=== PATIENT | female | born 1970 | race Caucasian/White ===

== ENCOUNTER 2024-09-19 14:56 | Observation (INO) | payer OTHER, SELFPAY ==
[2024-09-19] VITALS (9 sets, daily range): BP systolic 132–210; BP diastolic 88–128; PULSE 96–101; BMI 22.5; BMI 23.3
--- NOTE | 2024-09-19 11:55 | ED.GENMED ---
History of Present Illness
General
Chief Complaint: Fainting Sensation
Source: patient
Exam Limitations: none
Time Seen by Provider: 09/19/24 11:41
Nursing documentation reviewed up to this point in time: agreed with
History of Present Illness
History of Present Illness:
see mdm
Past History
Past History
ED Past Medical History: GERD and HTN
ED Past Surgical History: Appendectomy
Social History
Tobacco: Non-smoker
Alcohol: Occasional
Personal:
Living: with family
Employment: Employed
Family History
Family History: Negative Early CAD
Review of Systems
Review of Systems
Allergies reviewed?: Yes
All Other Systems: Not applicable
Phy Exam
Physical Exam
Physical Exam:
GENERAL: Alert , in no apparent distress
HEAD: NCAT
EYE: pupils asymmetric and reactive, no nystagmus, no photophobia
NECK: Supple,full rom, nontender
ENT: o/p clr, mmm.
CARDIAC: Regular rate and rhythm . no edema
LUNGS: Clear breath sounds bilaterally, no acute respiratory distress, no wheezes/rales/rhonchi
ABDOMEN: Soft, without focal tenderness, no r/g, no cvat
NEUROLOGICAL: Alert and orientedx 4, cn intact, no facial asymmetry, SPEECH DELAY 5/5 strength in UE/LE, sensation intact, romberg neg, ambulates without assistance, neg pronator drift
SKIN: Warm and dry, skin intact.
MUSCULOSKELETAL: No edema, well perfused.
PSYCH: Normal and appropriate interaction.
Scores
NIH Stroke Score
Level of Consciousness: 0 - Alert
LOC Questions: 0-Answers both correctly
LOC Commands: 0-Performs both correctly
Best Horizontal Gaze: 0-Normal
Visual Dukes: 0=Normal, no visual loss
Facial Palsy: 0=Normal, symmetrical
Motor - Right Arm: 0=No drift 10 seconds
Motor - Left Arm: 0=No drift 10 seconds
Motor - Right Le-No drift 5 seconds
Motor - Left Le-No drift 5 seconds
Limb Ataxia: 0-Absent
Sensation: 0-Normal
Best Language: 1-Mild aphasia
Dysarthria: 0-Normal
Extinction and Inattention: 0-No abnormality
NIH Total Score:: 1
Course
Orders/Labs/Results
Orders:
Orders
09/19/24 11:11
Electrocardiogram (*1) Urgent
Reason for Study: Fatigue / Weakness
EKG- Treatment ONCE
09/19/24 11:52
CT HEAD STROKE ALERT W/o Cont Urgent
Comment:
Reason For Exam: aphasia, HTN
Bedside Glucose- Treatment ONCE
Cardiac Monitoring- Treatment ONCE
IV Insert/Care/Rem.- Treatment PRN
Labetalol HCl [Trandate] 10 mg IV NOW STA
09/19/24 11:53
EKG- Treatment ONCE
09/19/24 12:12
Cardiovascular Evaluation Urgent
Comment: ADD ON
Complete Blood Count/With Diff Urgent
Comprehensive Metabolic Panel Urgent
Ferritin Urgent
Comment: ADD ON
Folate Urgent
Comment: ADD ON
Free T4 Urgent
Comment: ADD ON
Glycohemoglobin (HgbA1c) Urgent
TSH Urgent
Comment: ADD ON
Vitamin B12 Urgent
Comment: AD ON
09/19/24 14:18
Admit/Transfer Patient As Directed
Co-Sign Provider:
Level of Care: Observation services
Assign to:: Telemetry
Physician / Group: [email or web address]
Diagnosis: TIA/CVA, HTN emergencyvs. urgency
Reason for Telemetry: CVA/TIA
Date to Stop Telemetry: 09/22/24
Time to Stop Telemetry: 11:00
Reason for Hospitalization: TIA/CVA, HTN emergency vs urgency , near syncope
09/19/24 14:20
Code Status As Directed
Resuscitation Status: Full Code
09/19/24 14:26
Add On- LAB Routine
Tests Added?: folate, ferritin, TSH, free t4, B12, lipid panel
09/19/24 15:20
Acetaminophen [Tylenol/Feverall] 650 mg RECTAL Q4HPRN PRN
Acetaminophen [Tylenol] 650 mg PO Q4HPRN PRN
HydrALAZINE [Apresoline] 10 mg IV Q4HPRN PRN
09/19/24 15:20
Case Management Consult ONCE
Case Management Consult: Discharge Planning
Comment: stroke/tia
DIETARY IP CONSULT Routine
Reason for Consult: stroke/TIA
NEUROLOGY CONSULT Urgent
Consulting Provider: Samuel Betancourt
Was physician already notified: Yes
Chainstitch Sewing Machine Operator Urgent
Activity As Directed
Activity Level: With Assistance
NIH Stroke Scale As Directed
Directions: Per protocol
Comment: every shift and with any change in condition or mental status
Neurological Checks As Directed
Frequency: q4h
Additional Instructions:: q4h x 24h upon admission to the floor, then qshift & with any change in condition
and mental status
Orthostatic Vital Signs As Directed
Orthostatic VS Frequency: Now
Patient Education As Directed
Type: Stroke education packet
Comment: provide to patient and family
Pneumatic Compression Sleeves As Directed
Type: Knee high
Vital Signs As Directed
Frequency: Per unit guidelines
Ot Eval And Treat Routine
Pt Eval And Treat Routine
Activity Level: With Assistance
Speech Therapy Eval & Treat Routine
DX Deep Vein Thrombosis Video Routine
09/20/24 05:50
Cardiovascular Evaluation IN AM
Complete Blood Count/With Diff IN AM
09/20/24 08:00
Losartan [Cozaar] 50 mg PO DAILY
Pantoprazole [Protonix] 40 mg PO DAILY
09/22/24 11:00
DC Protocol for Telemetry ONCE
Abnormal Lab Results
09/19/24
12:12
MCH 31.8 H pg
(27.0-31.0)
Glucose 110 H mg/dl
(70-99)
Total Protein 8.7 H g/dl
(6.3-8.2)
Albumin 5.2 H g/dl
(3.5-5.0)
Triglycerides 153 H mg/dl
(10-149)
Total Cholesterol 228 H mg/dl
(50-199)
POC Glucose 120 H mg/dl
(70-99)
09/19/24 12:12
09/19/24 12:12
Vital Signs
Initial and Last Documented VS:
Initial Vital Signs
Temp Pulse Resp BP Pulse Ox
36.9 C 95 20 209/128 100
09/19/24 11:18 09/19/24 11:18 09/19/24 11:18 09/19/24 11:18 09/19/24 11:18
Last Documented Vital Signs
Temp Pulse Resp BP Pulse Ox
36.8 C 82 18 118/81 96
09/20/24 11:52 09/20/24 11:52 09/20/24 11:52 09/20/24 11:52 09/20/24 11:52
MDM/Problems Addressed
Differential Diagnosis Includes:
see MDM
MDM/Problems Addressed:
Note:
CHIEF COMPLAINT(S)
Lightheadedness and visual disturbances.
HISTORY OF PRESENT ILLNESS
The patient is a 53-year-old female who presented with sudden onset of lightheadedness and visual disturbances occurring today while sitting at her desk. She reports a sensation of potential syncope that she has never experienced before, described
as lightheadedness and episodes where it feels like tunnel vision starting from the left side. She also noted difficulty hearing out of one ear during these episodes. The symptoms seem positional, improving when lying down. Visual symptoms include
blurriness and an analogy to 'static on a TV' or 'particles' affecting both eyes, which have since improved. Pupillary asymmetry is present but not new according to the patient. No physical pain or exertion noted. There was an instance where the
patient experienced difficulty articulating responses and was observed by others to be slower in speech response. Additionally, the patient describes some nausea and an increased effort in visual focus shifts. She denies any chest discomfort or neck
pain.
According to the patient, she only takes medication for gastroesophageal reflux disease (GERD). Blood pressure readings taken by the patient in the past have shown some elevation.
EXTERNAL RECORDS REVIEWED
Current clinical evaluation suggests elevated blood pressure as a possible cause of symptoms.
PHYSICAL EXAM
- Neurological: Pupillary asymmetry noted. No observable neurological deficits upon initial examination.
- Cardiovascular: Blood pressure noted to be elevated but showing a trend towards normalization.
PLAN
Initiate stroke alert process to expedite imaging studies, specifically a CT scan to rule out acute intracranial events. Following confirmation of brain perfusion and exclusion of acute pathology, plan to address elevated blood pressure management.
DIFFERENTIAL DIAGNOSIS
The Differential Diagnosis includes, in no particular order and is not limited to:
- Hypertensive urgency or emergency
- Transient ischemic attack (TIA)
- Migraine with aura
- Benign paroxysmal positional vertigo (BPPV)
- Vestibular migraine
- Posterior reversible encephalopathy syndrome (PRES)
- Visual aura without migraine
- Anxiety-induced hyperventilation syndrome
- Orthostatic hypotension
- Retinal detachment
CARE-UPDATE
09/19/24 - 12:42
The patient reports feeling significantly better than upon initial admission. The initial CT scan showed no evidence of stroke or intracranial bleeding. The neurologist concurred with the assessment that elevated blood pressure could be the cause of
the presenting symptoms. Patient expresses a sense of improved well-being, but their blood pressure remains high. A plan to admit the patient overnight for observation is discussed, focusing on monitoring for any further neurologic events or rebound
hypertension once the acute effects of administered blood pressure medication subside.
1330 - d/w neurologist; agree probably it was hypertensive emergency
will admit
CTA was ordered; await results as well.
1500 ct neg
CTA was not performed per neurologist recommendation
will admit for hypertensive press syndrome;
*Pulse Oximetry
SaO2: 100
Oxygen Mode of Delivery: Room air
Patient hypoxic: no (96)
*Critical Care Note
Total Time (30-74mins, 75-104mins- exclusive of procedures): Not Applicable
ED Attending Note
-
Portions of this chart may have been created with voice recognition software.� Occasional wrong word or��sound alike� substitutions may have occurred due to the inherent limitations of voice recognition software.
Discharge Plan
Departure
Patient Disposition: Admit
Date of Disposition: 09/19/24
Time of Disposition: 13:29
Admit to: Telemetry
Presentation/result/management discussed w/ accepting MD/DO: Hospitalist
Condition: Fair
Covid-19: Not Applicable
Discharge Problem:
Hypertensive emergency
Interventions
Interventions:
*Risk Screen - Suicide Last Done: 09/19/24 11:18
*General Assessment Last Done: 09/19/24 11:18
*Neglect/Abuse Screening Last Done: 09/19/24 11:18
*ED- Fall Risk Assessment Last Done: 09/19/24 11:46
*ED COVID-19 Vaccine History Last Done: 09/19/24 13:27
*Nursing Disposition Last Done: 09/19/24 15:41
ED- Cardiac Assessment Last Done: 09/19/24 11:46
ED- Neurological Assessment Last Done: 09/19/24 11:39
Discharge Date and Time
Discharge Date/Time: 09/19/24 15:30
--- NOTE | 2024-09-19 12:03 | CON.NEURO ---
Addendum entered and electronically signed by Samuel Betancourt MD 09/19/24 16:37:
Studies reviewed.
I have personally examined the patient. I reviewed and agree with the THERMAL TECHNICIAN's Note.
My addenda:
Awake, alert, interactive. No acute distress.
Speech intact.
Follows 2-step requests w/o difficulty. No tremor.
Extra-ocular movements grossly intact.
Facial movements full and symmetric. Hearing intact to normal conversational volume.
Normal UE movements bilaterally.
Neck: full ROM.
Chest: no dyspnea
Heart: no JVD
Ext: (-) Clubbing, (-) Cyanosis, (-) Edema
IMPRESSIONS/RECOMMENDATIONS:
Abrupt onset of speech change, light-headedness, visual disturbances while demonstrating accelerated hypertension
may check MRI of brain, would check if normotension and continued symptoms
would start aspirin for now, reconsider after 6 months
goal of moderate reduction of BP over 24 hours
D/W patient / family / nursing
All questions answered.
Will continue to follow patient.
Original Note:
Documented by User: Joanne Archer NP 09/19/24 15:47
Neuro Assessment/Plan
Assessment
The patient is a 53-year-old female who presented to [facility] with sudden onset of lightheadedness and visual disturbances occurring today while sitting at her desk.
Head CT: No evidence of acute intracranial abnormality
Labs: Cholesterol 228, LDL 129
Plan
Impressions:
I. Abrupt onset of dizziness and blurry vision in the setting of hypertensive urgency as symptoms resolved with normalization of blood pressure
-goal normotension
-continue telemetry
-LDL 129, goal <70 start atorvastatin 40 mg nightly
-CVA unlikely given symptoms resolving most likely related to hypertensive encephalopathy, if symptoms worsen consider obtaining brain MRI
-DVT prophylaxis
-all questions encouraged and answered, plan of care discussed with Dr. Betancourt, nurse, patient
Consultation
Order
Date of Consultation: 09/19/24
Requesting Provider: hospitalist
Reason for Consult: blurry vision and dizziness
Subjective/Objective
Subjective Data
Date of Service: September 19, 2024
The patient is a 53-year-old female who presented to [facility] with sudden onset of lightheadedness and visual disturbances occurring today while sitting at her desk. She reports a sensation of potential syncope that she has never experienced before,
described as lightheadedness and episodes where it feels like tunnel vision starting from the left side. She also noted difficulty hearing out of her right ear during these episodes. The symptoms seem positional, improving when lying down. Visual
symptoms include blurriness and an analogy to 'static on a TV' or 'particles' affecting both eyes, which have since improved. Anisocoria present with right pupil being smaller than left but not new according to the patient. 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 Denies headache, dyspnea, chest pain, neck pain, tingling, focal weakness. There was an instance where the patient experienced difficulty articulating responses and was observed by
others to be slower in speech response. Additionally, the patient describes some nausea and an increased effort in visual focus shifts. According to the patient, she only takes medication for gastroesophageal reflux disease (GERD). Blood pressure
readings taken by the patient in the past have shown some elevation.
In ED hypertensive urgency with blood pressure 210/120. NIHSS 1 for mild aphasia. Stroke alert called at 1152. Taken to HCT at 1155. HCT with no evidence of acute intracranial abnormality. Not a TNK NIHSS 1. Dizziness, blurry vision, and hearing
improved with reduction of BP.
Objective Data
Vital Signs
Temp Pulse Resp BP Pulse Ox
98.4 F 95 20 210/120 100
09/19/24 11:18 09/19/24 11:18 09/19/24 11:18 09/19/24 11:41 09/19/24 11:55
Patient Allergies
bee venom protein (honey bee) Allergy (Verified 09/19/24 11:17)
Anaphylaxis
hydromorphone (From Dilaudid) Allergy (Verified 09/19/24 11:17)
Hives
ondansetron (From Zofran) Allergy (Verified 09/19/24 11:17)
Unknown
CVA Assessment
NIH Stroke Score
Level of Consciousness: 0 - Alert
LOC Questions: 0-Answers both correctly
LOC Commands: 0-Performs both correctly
Best Horizontal Gaze: 0-Normal
Visual Dukes: 0=Normal, no visual loss
Facial Palsy: 0=Normal, symmetrical
Motor - Right Arm: 0=No drift 10 seconds
Motor - Left Arm: 0=No drift 10 seconds
Motor - Right Le-No drift 5 seconds
Motor - Left Le-No drift 5 seconds
Limb Ataxia: 0-Absent
Sensation: 0-Normal
Best Language: 1-Mild aphasia
Dysarthria: 0-Normal
Extinction and Inattention: 0-No abnormality
NIH Total Score:: 1
Tenecteplase Contraindications
Inclusion and Exclusion criteria reviewed: Yes
IAT Contraindications: NIHSS < 6
Modified Union Score (MRS)
-
Modified Sweetie Scale (mRS): No symptoms
Score: 0
Review of Systems
-
History Source: Patient
Constitutional: No Symptoms
EENT: Blurry Vision and Hearing Loss
Respiratory: No Symptoms
Cardiac: No Symptoms
Abdomen/GI: No Symptoms
Genitourinary: No Symptoms
Musculoskeletal: No Symptoms
Skin: No Symptoms
Neuro: Dizzy and Speech Problem
Physical Exam
-
General: Comfortable and Appears Stated Age
HEENT: Normocephalic, Atraumatic and Anicteric
Neck: Full Range of Motion
Respiratory: No Dyspnea
Cardiac: No JVD
GI: Non-distended
Skin: Unremarkable
Extremities: No Clubbing, No Cyanosis and No Edema
Extended Neurological Exam
Mood & Affect: Mood Unremarkable
Attention Span & Concentration: Awake, Alert, Interactive and No Difficulty with 2 Step Request
Memory: Unremarkable
Tremor: Hand Tremor Absent and Head Tremor Absent
Speech: Other (word finding difficulty)
Cranial Nerve II: Left Eye: Visual Dukes Grossly Intact
Cranial Nerve II: Right Eye: Visual Dukes Grossly Intact and Smaller than Contralateral
Cranial Nerves III, IV, : Extraocular Movement: Extraocular Movement Full in all Directions
Cranial Nerve VII: Facial Symmetry: Normal Facial Symmetry
Cranial Nerve VIII: Hearing: Unremarkable Hearing to Normal Conversational Volume
Muscle Strength, Overall: Full Throughout
Muscle Bulk & Tone: Bulk Unremarkable and Tone Unremarkable
Pronator Drift: No Drift in Upper Extremities and No Drift in Lower Extremities
Deep Tendon Reflexes: Unremarkable Throughout
Coordination: Lxujkj-skdb-ahrkmk Testing Unremarkable, Reaches for Objects without Difficulty and Eqdw-Nxzh-Dlzh movements intact bilaterally
Data Reviewed
-
CT Head: Report Reviewed and Image Reviewed
Labs: Report Reviewed
Reviewed with: Physician, Nurse, Patient and Family
Old Records: Summarized
Medications
-
Home Medications
�Medication �Instructions �Recorded
oxycodone-acetaminophen 5 mg-325 1 tab PO Q4HPRN PRN Pain #15 tabs 05/08/14
mg tablet
cefdinir 300 mg capsule (Omnicef) 300 mg PO BID Urinary issue #14 12/04/18
caps
phenazopyridine 100 mg tablet 100 mg PO TIDPRN PRN Urinary 12/04/18
issues #6 tabs
ondansetron 4 mg disintegrating 4 mg PO TIDPRN PRN nausea #12 tabs 06/22/20
tablet
Past History
Past History
ED Past Medical History: GERD and HTN
ED Past Surgical History: Appendectomy
Family/Social History
Tobacco: Non-smoker
Alcohol: Occasional
Personal:
Living: with family
Employment: Employed
Family History: Negative Early CAD

Documented by User: Samuel Betancourt MD 09/19/24 16:22
Neuro Assessment/Plan
Plan
Impressions:
I. Abrupt onset of dizziness and blurry vision in the setting of hypertensive urgency as symptoms resolved with normalization of blood pressure
-goal normotension
-continue telemetry
-LDL 129, goal <70 start atorvastatin 40 mg nightly
-CVA unlikely given symptoms resolving most likely related to hypertensive encephalopathy, if symptoms worsen consider obtaining brain MRI
-DVT prophylaxis
all questions encouraged and answered, plan of care discussed with Dr. Betancourt, nurse, patient
CVA Assessment
NIH Stroke Score
NIH Total Score:: 1
Modified Union Score (MRS)
-
Score: 0
[2024-09-19] MEDS: TRANDATE 10 MG IV (12:12)
[2024-09-19 12:13] LABS: Glucose - Point of Care 120 mg/dl (70-99)
[2024-09-19 12:19] LABS: % Basophils 0.3 % (0-2); % Eosinophils 1.2 % (0-6); % Immature Granulocytes 0.4 % (0-0.5); % Lymphocytes 23.1 % (20.5-51.1); % Monocytes 8.2 % (1.7-9.3); % Neutrophils 66.8 % (42.2-75.2); Absolute Eosinophils 0.1 10^3/uL (0-0.7); Absolute Lymphocytes 1.7 10^3/uL (1.2-3.4); Absolute Monocytes 0.6 10^3/uL (0.1-0.6); Hematocrit 40.7 % (37.0-47.0); Hemoglobin 14.2 g/dL (12.0-16.0); Mean Corp Hgb Conc. 34.9 g/dL (33.0-37.0); Mean Corpuscular Hgb 31.8 pg (27.0-31.0); Mean Corpuscular Volume 91.1 fL (81.0-99.0); Nucleated Red Blood Cells % 0 %; Platelet Count 308 10^3/uL (130-400); Red Blood Cell Count 4.47 10^6/uL (4.20-5.40); Red Cell Dist. Width 13.2 % (11.5-14.5); White Blood Cell Count 7.5 10^3/uL (4.8-10.8)
[2024-09-19 12:36] LABS: ALT (SGPT) 18 U/L (0-35); AST (SGOT) 22 U/L (14-36); Albumin 5.2 g/dl (3.5-5.0); Alkaline Phosphatase 82 U/L (38-126); Blood Urea Nitrogen 13 mg/dl (7-17); Calcium 9.4 mg/dl (8.4-10.2); Carbon Dioxide 23 mmol/L (22-30); Chloride 104 mmol/L (98-107); Estimated Creatinine Clearance 79 ml/min; Glucose 110 mg/dl (70-99); Potassium 4.3 mmol/L (3.5-5.1); Sodium 139 mmol/L (135-145); Total Bilirubin 0.8 mg/dl (0.2-1.3); Total Protein 8.7 g/dl (6.3-8.2); eGFR > 60.00
--- NOTE | 2024-09-19 14:06 | HPS.HSE ---
Family Physician
-
Family Physician: Cosmo Kovacs
Chief Complaint
-
sudden onset of lightheadedness
History of Present Illness
53F Nonsmoker HX HTN
- sudden onset of lightheadedness and visual disturbances occurring today while sitting at her desk
- felt like passing out - no prior HX syncope
- symptoms seem positional, improving when lying down.
- Visual symptoms include blurriness and an analogy to 'static on a TV - improved
BP 210s/110s
Medical History
Past Medical History
Past Medical History: Reports GERD and HTN
Past Surgical History: Reports None
Social History
Tobacco: Non-smoker
Family History
Family History: Not pertinent
Allergies / Home Medications
Allergies reflects when Allergies were last updated in [facility].
Home Medications with original date entered in [facility]
Allergy/Medication List:
Allergies
Allergy/AdvReac Type Severity Reaction Status Date / Time
bee venom protein (honey bee) Allergy Anaphylaxis Verified 09/19/24 11:17
hydromorphone (From Dilaudid) Allergy Hives Verified 09/19/24 11:17
ondansetron (From Zofran) Allergy Unknown Verified 09/19/24 11:17
Home Medications
pantoprazole 40 mg tablet,delayed release (Protonix) 40 mg PO DAILY 09/19/24
telmisartan 40 mg tablet 40 mg PO DAILY 09/19/24
Review of Systems
-
Constitutional: Reports No Symptoms
EENT: Reports No Symptoms
Respiratory: Reports No Symptoms
Cardiac: Reports No Symptoms
Abdomen/GI: Reports No Symptoms
: Reports No Symptoms
Musculoskeletal: Reports No Symptoms
Skin: Reports No Symptoms
Neurological: Reports See HPI
Endocrine: Reports No Symptoms
Hematologic/Lymphatic: Reports No Symptoms
Psych: Reports No Symptoms
Physical Exam
Vital Signs
Vital Signs
Temp Pulse Resp BP Pulse Ox
98.4 F 100 21 141/106 92
09/19/24 11:18 09/19/24 14:00 09/19/24 14:00 09/19/24 14:00 09/19/24 14:00
Physical Exam
General: Well Developed, Well Nourished and No Apparent Distress
HEENT: NormoCephalic, Moist mucous membranes and Atraumatic
Respiratory: Clear
Cardiac: S1/S2 and Regular Rhythm; No Murmur or Rub
GI: Soft, Non Tender, Non Distended and Normal Bowel Sounds; No Organomegaly
Rectal: Deferred by Provider
Musculoskeletal: No Clubbing, No Cyanosis and No Edema
Skin: No Rash
Neuro: Nonfocal/grossly intact
Laboratory Results
-
09/19/24 12:12
09/19/24 12:12
Laboratory Results
Total Bilirubin 0.8 mg/dl (0.2-1.3) 09/19/24 12:12
AST 22 U/L (14-36) 09/19/24 12:12
ALT 18 U/L (0-35) 09/19/24 12:12
Alkaline Phosphatase 82 U/L (38-126) 09/19/24 12:12
Data Reviewed
-
CT Scan: Report Reviewed by me
Medical Tests (Nuc Med, Echo, EKG etc): Report Reviewed by me
Lab Data: Labs Reviewed by me
Impression/Plan
-
Vital Signs
Temp Pulse Resp BP Pulse Ox
98.4 F 100 21 141/106 92
09/19/24 11:18 09/19/24 14:00 09/19/24 14:00 09/19/24 14:00 09/19/24 14:00
Selected Entries
09/19/24
11:18 09/19/24
12:00 09/19/24
13:00
Pulse 85
Blood pressure 209/128 185/128 149/105
Abnormal Lab Results
09/19/24
12:12
MCH 31.8 H
Glucose 110 H
Total Protein 8.7 H
Albumin 5.2 H
POC Glucose 120 H
EKG
SINUS TACHYCARDIA
OTHERWISE NORMAL ECG
WHEN COMPARED WITH ECG OF 29-AUG-2009 23:24,
NO SIGNIFICANT CHANGE WAS FOUND
CT HEAD STROKE ALERT W/o Cont
No evidence of acute intracranial abnormality
NO PRIOR hospitalist admission:
ASSESSMENT & PLAN
Pending Rx reconciliation
Eval TIA/CVA for sudden onset of lightheadedness and visual disturbances and near syncope
Hypertensive urgency or emergency : HX Benign HTN on Telmisartan
Transient ischemic attack (TIA); NIH 1 per ER
Migraine with aura
Orthostatic hypotension
- ortho VSS
- BP improved with IV labetalol
- IV Hydrazine PRN
- resume Telmisartan
- Brain MRI in AM
- Neuro consult seen at ER
GERD on PO PPI
- stable
DVT Px: SCD
Full code
Obs TLM
[2024-09-19 14:44] LABS: HDL Cholesterol 69 mg/dl; LDL Cholesterol, Calculated 129 mg/dl; Total Cholesterol 228 mg/dl (50-199); Triglyceride 153 mg/dl (10-149); Very Low Density Lipoprotein 30 mg/dl (0-30)
[2024-09-19 15:03] LABS: Free T4 1.14 ng/dl (0.78-2.19)
[2024-09-19 15:17] LABS: TSH 2.07 uIU/ml (0.47-4.68)
[2024-09-19 15:21] LABS: Ferritin 52.6 ng/ml (11.1-264.0)
[2024-09-19 15:53] LABS: Folate 10.9 ng/ml (2.76-20); Vitamin B12 399 pg/ml (239-931)
--- NOTE | 2024-09-19 16:08 | PTCARENOTE ---
Received patient from ED via wheelchair. AAOx3, ambulated to bed without assistance. Assessed and oriented to room. bus driver/monitor reading NSR. NIH-0. Call montero in close reach.
[2024-09-19] MEDS: LIPITOR 40 MG PO (17:24)
[2024-09-19] MEDS: TYLENOL 650 MG PO (19:59)
[2024-09-20 03:46] VITALS: BP 127/90
[2024-09-20 07:00] VITALS: BP 116/81
[2024-09-20 07:26] LABS: % Basophils 0.3 % (0-2); % Eosinophils 2.7 % (0-6); % Immature Granulocytes 0.4 % (0-0.5); % Lymphocytes 29.5 % (20.5-51.1); % Monocytes 9.5 % (1.7-9.3); % Neutrophils 57.6 % (42.2-75.2); Absolute Eosinophils 0.2 10^3/uL (0-0.7); Absolute Lymphocytes 2.2 10^3/uL (1.2-3.4); Absolute Monocytes 0.7 10^3/uL (0.1-0.6); Absolute Neutrophils 4.2 10^3/uL (1.4-6.5); Hematocrit 37.1 % (37.0-47.0); Hemoglobin 12.8 g/dL (12.0-16.0); Mean Corp Hgb Conc. 34.5 g/dL (33.0-37.0); Mean Corpuscular Hgb 31.9 pg (27.0-31.0); Mean Corpuscular Volume 92.5 fL (81.0-99.0); Mean Platelet Volume 9.8 fL (7.4-10.4); Nucleated Red Blood Cells % 0 %; Platelet Count 251 10^3/uL (130-400); Red Blood Cell Count 4.01 10^6/uL (4.20-5.40); Red Cell Dist. Width 13.3 % (11.5-14.5); White Blood Cell Count 7.3 10^3/uL (4.8-10.8)
[2024-09-20 07:33] LABS: HDL Cholesterol 51 mg/dl; LDL Cholesterol, Calculated 93 mg/dl; Total Cholesterol 181 mg/dl (50-199); Triglyceride 186 mg/dl (10-149); Very Low Density Lipoprotein 37 mg/dl (0-30)
[2024-09-20] MEDS: COZAAR 50 MG PO (07:47)
[2024-09-20] MEDS: PROTONIX 40 MG PO (07:47)
--- NOTE | 2024-09-20 07:49 | W.PN.HOSP.TC ---
Today's Communication/Plan
-
Discharge
Assessment / Plan
Assessment / Plan
Physical Exam
General: No acute distress, appears comfortable
HEENT: NormoCephalic, Moist mucous membranes and Atraumatic
Respiratory: Clear
Cardiac: S1/S2 and Regular Rhythm; No Murmur or Rub
GI: Soft, Non Tender, Non Distended and Normal Bowel Sounds
Musculoskeletal: No Clubbing, No Cyanosis and No Edema
Skin: No Rash
Neuro: AOx3 conversant coherent
53F HTN GERD present for evaluation sudden onset lightheadedness and visual disturbance, blurriness, with associate high blood pressure 210s/110s noted in ED corrected with once IV Labetalol. Symptoms since completely resolved. Blood pressure
since well controlled on Losartan 50 mg daily.
Hypertensive Urgency vs Emergency
Stroke ruled out
-Head CT appreciated no acute abn's
-Head MRI appreciated no acute abn's
-Neuro eval appreciated
-per discussion with Neuro, no need for antiplatelet at this time
-BP well controlled at this time with Losartan 50 mg daily
Hyperlipidemia
cont statin
GERD on PO PPI
- stable
DVT Px: SCD
Full code
Obs TLM
Medically stable for discharge home with outpatient follow up recommendations
Total Time Preparing Discharge ___40____ minutes including examination of the patient, summary of the hospital stay, instructions for continuing care to all relevant caregivers; and preparation of discharge records, prescriptions, and referral
forms if necessary.
Anticipated Discharge: Today
Subjective/Interval History
-
Date of Service: September 20, 2024
Reports feeling well. Symptoms completely resolved including prior vision issues. No acute distress, appears comfortable. Eager to go home.
Objective Data
-
Labs:
Laboratory Results
09/20/24
05:50
WBC 7.3
Hgb 12.8
Hct 37.1
Plt Count 251
Vital Signs:
Vital Signs
Temp Pulse Resp BP Pulse Ox
98.1 F 76 18 127/90 97
09/20/24 03:46 09/20/24 03:46 09/20/24 03:46 09/20/24 03:46 09/20/24 03:46
[2024-09-20 08:49] LABS: Glycohemoglobin (HgbA1c) 5.3 % (4.0-5.6)
--- NOTE | 2024-09-20 09:59 | W.PN.NEURO.1 ---
Today's Communication / Plan
-
goal normotension
LDL 129, goal <70 start atorvastatin 40 mg nightly
Neuro Assessment/Plan
Assessment
The patient is a 53-year-old female who presented to [facility] with sudden onset of lightheadedness and visual disturbances occurring today while sitting at her desk. Most likely diagnosis based on MRI of brain not demonstrating abnormality is
hypertensive encephalopathy
Head CT: No evidence of acute intracranial abnormality
Labs: Cholesterol 228, LDL 129
Plan
goal normotension
LDL 129, goal <70 start atorvastatin 40 mg nightly
Will follow as needed
Subjective/Objective
Subjective Data
Date of Service: September 20, 2024
Patient reports symptoms have completely resolved
Objective Data
Vital Signs
Temp Pulse Resp BP Pulse Ox
36.8 C 80 16 116/81 98
09/20/24 07:00 09/20/24 07:00 09/20/24 07:00 09/20/24 07:00 09/20/24 08:00
Lab Results
09/20/24 05:50
09/19/24 12:12
Sodium 139 mmol/L (135-145) 09/19/24 12:12
Potassium 4.3 mmol/L (3.5-5.1) 09/19/24 12:12
BUN 13 mg/dl (7-17) 09/19/24 12:12
Glucose 110 mg/dl (70-99) H 09/19/24 12:12
Calcium 9.4 mg/dl (8.4-10.2) 09/19/24 12:12
LDL Cholesterol, Calc 93 mg/dl 09/20/24 05:50
Vitamin B12 399 pg/ml (239-931) 09/19/24 12:12
Patient Allergies
bee venom protein (honey bee) Allergy (Verified 09/19/24 11:17)
Anaphylaxis
hydromorphone (From Dilaudid) Allergy (Verified 09/19/24 11:17)
Hives
ondansetron (From Zofran) Allergy (Verified 09/19/24 11:17)
Unknown
Physical Exam
-
General: No Apparent Distress and Appears Stated Age
Eyes: Round OU, [place] Conjunctivae and No Ptosis
HEENT: Anicteric and Moist Mucous Membranes
Neck: Full Range of Motion
Respiratory: No Dyspnea
Cardiac: No JVD
GI: Non-distended
Skin: Unremarkable
Extremities: No Clubbing, No Cyanosis and No Edema
Psych: Intact Judgement/Insight
Extended Neurological Exam
Mood & Affect: Mood Unremarkable and Affect Unremarkable
Attention Span & Concentration: Awake, Alert and Interactive
Memory: Unremarkable
Tremor: Hand Tremor Absent and Head Tremor Absent
Speech: Quality Unremarkable and Quantity Unremarkable
Cranial Nerve II: Left Eye: Pupillary Size Unremarkable and Visual Dukes Grossly Intact
Cranial Nerve II: Right Eye: Pupillary Size Unremarkable and Visual Dukes Grossly Intact
Cranial Nerves III, IV, : Extraocular Movement: Grossly Intact
Cranial Nerve VII: Facial Symmetry: Normal Facial Symmetry
Cranial Nerve VIII: Hearing: Unremarkable Hearing to Normal Conversational Volume
Cranial Nerve XI: Shoulder Shrug: Unremarkable
Muscle Bulk & Tone: Bulk Unremarkable and Tone Unremarkable
Touch Sensation: Unremarkable
Coordination: [id number] Testing Unremarkable
Data Reviewed
-
MRI Head: Image Reviewed
Labs: Report Reviewed
Reviewed with: Physician, Nurse and Patient
Old Records: Summarized
Past History
Past History
ED Past Medical History: GERD and HTN
ED Past Surgical History: Appendectomy
Social History
Tobacco: Non-smoker
Alcohol: Occasional
Personal:
Living: with family
Employment: Employed
Family History
Family History: Negative Early CAD
Medications
-
Medications:
Generic Name Dose Route Start Last Admin
Trade Name Freq PRN Reason Stop Dose Admin
Acetaminophen 650 mg 09/19/24 15:20
Acetaminophen 650 Mg Rectal Suppository RECTAL 10/17/24 15:19
Q4HPRN PRN
STONE, mild pain, or temp >100.4F
Acetaminophen 650 mg 09/19/24 15:20 09/19/24 19:59
Acetaminophen 325 Mg Tablet PO 10/17/24 15:19 650 mg
Q4HPRN PRN Administration
STONE, mild pain, or temp >100.4F
Atorvastatin Calcium 40 mg 09/19/24 18:00 09/19/24 17:24
Atorvastatin (Lipitor) 40 Mg Tablet PO 10/17/24 17:59 40 mg
QPM LEX Administration
Hydralazine HCl 10 mg 09/19/24 15:20
Hydralazine 20 Mg/Ml Vial IV 10/17/24 15:19
Q4HPRN PRN
SBP > 185, DBP >110
Losartan Potassium 50 mg 09/20/24 08:00 09/20/24 07:47
Losartan 50 Mg Tablet PO 10/18/24 07:59 50 mg
DAILY LEX Administration
Pantoprazole Sodium 40 mg 09/20/24 08:00 09/20/24 07:47
Pantoprazole 40 Mg Delayed Release Tablet PO 10/18/24 07:59 40 mg
DAILY LEX Administration
Sodium Chloride 0 flush 09/19/24 16:00
Sodium Chloride 0.9% (Flush) Syringe IV 10/17/24 15:59
PER PROTOCOL LEX
[2024-09-20 10:35] VITALS: BP 131/89; BP 139/94; PULSE 86; O2SAT 95
[2024-09-20 11:52] VITALS: BP 118/81
--- NOTE | 2024-09-20 13:09 | CM ---
Alert awake oriented independent patient who lives with adults children in a 2 story home with 7 steps to enter and 5 steps to bed/bathroom.
She is independent in driving and ADLs.Observation letter given explained . Pt signed letter and is on chart.Offered VN pt declined need.
No adaptive devices.
No VN/SNF
Pharmacy [facility]
PCP Christos Valenzuela [facility]
PLAN Home no needs
--- NOTE | 2024-09-20 15:05 | W.DCSUMMARY ---
Discharge Summary
Discharge Data
Date of Admission: 09/19/24
Date of Discharge: 09/20/24
-
Pending Results: No
Discharge Plan
-
Patient Disposition: Home (Routine Discharge)
Discharge Diagnosis/Procedures: Hypertensive Urgency/Emergency
Stroke Ruled Out
Hyperlipidemia
Condition: Good
Diet: Low Cholesterol and 2 Gram Sodium
Activity: As tolerated
Driving Restrictions: As prior to admission
Bathing Restrictions: None
Blood Work: Repeat Lipid Panel with Primary care provider in 1 month of discharge.
Activity Restrictions/Additional Instructions:
Follow up with primary care provider in 1 week of discharge and [employer] in 1-2 weeks of discharge.
Telmisartan has been switched to Losartan 50 mg daily for treatment hypertension. Keep a log of your blood pressures at home twice a day and review your log with your primary care provider in follow up for further evaluation treatment hypertension.
Bring your blood pressure monitoring device with your in follow up visit to compare your device's blood pressure recordings to office recordings.
Statin has been prescribed for hyperlipidemia.
Please take medications as prescribed/recommended and follow up with primary care provider and/or other healthcare provider involved in your care for refills and/or further adjustment to your medication regimen as necessary.
Instructions: High blood pressure in adults, Controlling your blood pressure through lifestyle
Referrals:
Cosmo Kovacs MD [Family Provider, Family Practice] - in one week
Prescriptions:
New
losartan 50 mg Tablet
50 mg PO DAILY Qty: 30 0RF
atorvastatin 40 mg Tablet
40 mg PO QPM Qty: 30 0RF
Continued
pantoprazole [Protonix] 40 mg Tablet,Delayed Release (Dr/Ec)
40 mg PO DAILY
Discontinued
telmisartan 40 mg Tablet
40 mg PO DAILY
Discharge Orders:
Discharge Patient (As Directed); Ordered 09/20/24
Ordered By: Jazlyn Flores
Discharge Date and Time
Print Language: [place]
== END 2024-09-20 15:41 | disposition home or self-care (01) ==
LOC: 4 EAST ACU 14:56
PROVIDERS: ADMITTING PHYSICIAN Internal Medicine; ATTENDING PHYSICIAN Internal Medicine; CONSULT PHYSICIAN Psychiatry & Neurology Neurology; EMERGENCY PHYSICIAN Emergency Medicine; FAMILY PHYSICIAN Family Medicine
DX: I16.1 Hypertensive emergency (principal); R53.1 Weakness; I10 Essential (primary) hypertension; R47.01 Aphasia; Z86.73 Personal history of transient ischemic attack (TIA), and cerebral infarction without residual deficits; G43.109 Migraine with aura, not intractable, without status migrainosus; I95.1 Orthostatic hypotension; Z79.899 Other long term (current) drug therapy; K21.9 Gastro-esophageal reflux disease without esophagitis; E78.5 Hyperlipidemia, unspecified
CPT/HCPCS: 70450; 70551; 80053; 80061; 82607; 82728; 82746; 82962; 83036; 84439; 84443; 85025; 92523; 93005; 96374; 97161; 97166; 97530; 99285; G0378